=== PATIENT | male | born 1940 | race Caucasian/White ===

== ENCOUNTER → 2019-09-01 | Outpatient (CLI) | payer MEDICARE, BC ==
--- NOTE | 2019-09-03 08:45 | MR ---
EXAMINATION TYPE: MR cervical spine wo con DATE OF EXAM: 09/01/2019 COMPARISON: None HISTORY: Cervical radiculopathy, numbness in fingers TECHNIQUE: Multiplanar, multisequence images of the cervical spine were acquired. C2-C3: On degenerative disc disease with facet arthropathy. Very minimal central disc bulging but no focal herniation or canal stenosis. Neural foramina remain patent. C3-C4: Degenerative disc disease with bilateral uncovertebral joint hypertrophy and facet arthropathy . Circumferential disc bulging. Borderline to mild canal stenosis. Mild bilateral foraminal encroachm ent. C4-C5: Degenerative disc disease with uncovertebral joint hypertrophy and facet arthropathy. Mild rig ht foraminal encroachment. Borderline Canal stenosis. No focal herniation. C5-C6: Degenerative disc disease with uncovertebral joint hypertrophy. Moderate right and moderate to severe left foraminal encroachment. Disc bulging capped by spur results in mild central stenosis. No focal herniation. C6-C7: Degenerative disc disease with left paracentral disc protrusion capped by spur. No spinal cord contact. Mild bilateral foraminal encroachment with facet arthropathy and uncovertebral vertebral graham dy hemangioma C7. C7-T1: No evidence for degenerative disc disease. No disc bulge/herniation or protrusion. No Canal stenosis. Foramina are patent bilaterally. Cervical segments are intact. There is normal alignment. Cervical spinal cord is of normal signal. Craniovertebral junction relationships are within normal limits. Multilevel degenerative disc disea se most marked findings at C5-C6 6. IMPRESSION: 1. Multilevel moderate to severe degenerative disc disease with multilevel facet arthropathy resultin g in multilevel foraminal encroachment as discussed above. 2. Mild central stenosis C5-C6 due to disc bulging capped by spur and hypertrophic changes. 3. Focal moderate-sized left paracentral disc protrusion capped by spur C6-C7. No spinal cord contact . 4. Borderline to mild canal stenosis C3-C4 and C4-C5
== END | disposition home or self-care (01) ==
LOC: RADMRIMAIN 14:06
PROVIDERS: ATTEND Family Medicine
DX: M48.02 Spinal stenosis, cervical region (principal); M50.11 Cervical disc disorder with radiculopathy, high cervical region; M46.92 Unspecified inflammatory spondylopathy, cervical region
CPT/HCPCS: 72141

== ENCOUNTER → 2022-12-17 | Outpatient (CLI) | payer MEDICARE ==
[2022-12-17 18:46] LABS: HCT 45.3 % (39.6-50.0); HGB 15.1 g/dL (13.0-17.0); MCH 32.1 pg (27.0-32.0); MCHC 33.3 g/dL (32.0-37.0); MCV 96.2 fL (80.0-97.0); Mean Platelet Volume 10.5 fL (9.5-12.2); NRBC Per 100 WBC 0 /100 WBCS (0.0-0.0); Platelet Count 176 X 10*3/uL (140-440); RBC 4.71 X 10*6/uL (4.40-5.60); RDW 13.3 % (11.5-14.5); WBC 5.96 X 10*3/uL (4.50-10.00)
[2022-12-17 18:55] LABS: Anion Gap 10.3 mmol/L (10.00-18.00); Carbon Dioxide 27.7 mmol/L (20.0-27.5); Non-African American GFR(CKD) 70.8 (60.0-200.0); Potassium 3.4 mmol/L (3.5-5.5)
== END | disposition home or self-care (01) ==
LOC: LABPAT 11:11
PROVIDERS: ATTEND Internal Medicine Interventional Cardiology
DX: Z01.812 Encounter for preprocedural laboratory examination (principal); R07.9 Chest pain, unspecified
CPT/HCPCS: 80051; 82565; 85027

== ENCOUNTER 2022-12-20 07:55 | Day surgery (SDC) | payer MEDICARE ==
[~2022-12-20 07:55] MED LIST: ALPRAZolam 0.25 MG TAB PO PRN; ALPRAZolam 0.5 MG TAB PO PRN; ASPIRIN 325 MG TAB PO STA; ATORVASTATIN 80 MG TAB PO STA; HEPARIN SODIUM,PORCINE 10,000 UNIT in SODIUM CHLORIDE 0.9% 1,000 ML IRRIGATION PRN; HEPARIN SODIUM,PORCINE 2,500 UNIT in SODIUM CHLORIDE 0.9% 250 ML IRRIGATION PRN; NITROGLYCERIN SL TABS 0.4 MG TAB SUBLINGUAL PRN
[2022-12-20] MEDS: SODIUM CHLORIDE 0.9% 1,000 ML in EMPTY BAG 1 BAG IV SCH ×2 (08:31→21:01)
[2022-12-20] MEDS ORDERED: HEPARIN SODIUM 1,000 UN/ML (10ML VL) ONE (10:37)
[2022-12-20] MEDS ORDERED: fentaNYL (PF) 50 MCG/ML 2 ML AMP ONE (10:37)
[2022-12-20] MEDS ORDERED: fentaNYL (PF) 50 MCG/ML 2 ML AMP IV ONE (10:40)
[2022-12-20] MEDS ORDERED: LIDOCAINE 1% INJ 10MG/ML (5 ML VIAL-PF) SQ ONE (10:42)
[2022-12-20] MEDS ORDERED: VERAPAMIL SYRINGE (5 MG/10 ML) INTRAARTER ONE (10:43)
[2022-12-20] MEDS: HEPARIN SODIUM 1,000 UN/ML (10ML VL) IV ONE ×2 (10:48→10:59)
[2022-12-20] MEDS ORDERED: CLOPIDOGREL 75 MG TAB ONE (10:59)
[2022-12-20] MEDS: NITROGLYCERIN 1000MCG/10ML SYRINGE INTRACORON ONE ×2 (11:06→11:09)
[2022-12-20] MEDS ORDERED: CLOPIDOGREL 75 MG TAB PO ONE (11:08)
[2022-12-20] MEDS ORDERED: IOPAMIDOL-370 100ML BTL INJ ONE (11:08)
[2022-12-20] MEDS ORDERED: RX INFO: IV CONTRAST WAS GIVEN 1 EACH MISC MISCELLANE PRN (11:17)
[2022-12-20] MEDS ORDERED: NITROGLYCERIN SL TABS 0.4 MG TAB SUBLINGUAL PRN (11:17)
[2022-12-20] MEDS ORDERED: MAG HYDROX/AL HYDROX/SIMETH 30 ML CUP PO PRN (11:17)
[2022-12-20] MEDS ORDERED: ZOLPIDEM 5 MG TAB PO PRN (11:17)
[2022-12-20] MEDS ORDERED: ATROPINE SULFATE 0.1 MG/ML 10ML SYRINGE IV PRN (11:17)
[2022-12-20] MEDS ORDERED: IOPAMIDOL-370 50ML BTL INJ ONE (11:17)
--- NOTE | 2022-12-20 11:24 | P.PCN ---
Date of Procedure: 12/20/22 Operative Findings: CARDIAC CATHETERIZATION AND PERCUTANEOUS CORONARY INTERVENTION PERFORMING PHYSICIAN: Kael Gonzalez MD, VI PROCEDURE PERFORMED: 1. Selective right and left coronary angiogram 2. Left heart catheterization 3. Successful stenting of first obtuse marginal branch using 2.75 x 18 mm Xience PARVEEN which with an excellent angiographic results 4. Right radial artery angiogram INDICATION: This is an 10-year-old gentleman with hypertension and dyslipidemia who was seen in the office recently with a chest discomfort. He underwent myocardial perfusion imaging stress test and that showed ischemia. In light of that a heart catheterization was advised COMPLICATION: None APPROACH: Right radial artery LEVEL OF SEDATION: Moderate with the sedation time off 32 minutes PROCEDURE DESCRIPTION: After obtaining an informed consent the patient was brought to the cardiac energy systems laboratory director. The right radial artery was cannulated using micropuncture technique, the micropuncture wire passed easily then I placed a 6-[place] sheath. I gave the patient 2 mg of verapamil intra-arterial and 5000 units of heparin intravenous. Additional 3000 units given throughout the procedure. Selective right and left coronary angiogram performed using JR4 and JL 3.5 catheters. Left heart catheterization was performed using the JR4 catheter which across aortic valve that I did pulled back across the valve. After that I did intervene on the left circumflex SELECTIVE CORONARY ANGIOGRAM: The right coronary artery: Large caliber vessel and a dominant vessel. The RCA is angiographically normal. Bifurcates distally into PDA and PLV branches both appeared to be angiographically normal Left main: Is angiographically normal. Bifurcates into an ulcer next and LAD The left circumflex: Large caliber vessel nondominant vessel. The LCx proximally is angiographically normal and gives rises into an OM1 which appeared to be angiographically normal and OM 2 which has a tight lesion appeared to be very focal in the range of 80- 90%. The circumflex continue after that as a moderate caliber vessel in the AV groove The left anterior descending artery: Large caliber vessel. The LAD has mild disease only. Gives rises proximally into large diagonal branch which work as a ramus intermedius appears to have mild disease only. HEMODYNAMICS: The LVEDP was about 29 mmHg with no significant gradient across aortic valve PCI OF THE LCx: Anticoagulation was initiated using heparin with continuous ACT monitoring. I did engage the left main using a JL 3.5 guiding catheter. Subsequently I did wire the OM1 using a run-through wire. Predilatation was performed using 2.5 mm balloon before I deployed 2.75 x 18 mm stent where the stent was positioned under fluoroscopy guidance and deployed under its nominal pressure. The following angiogram showed good angiographic results and the procedure was completed was no complications CONCLUSION: Severe disease involving a large OM1. I did perform successful stenting of OM1 Elevated left sided filling pressure POSTPROCEDURE MANAGEMENT: #1 dual antiplatelet therapy aspirin and Plavix for at least 6 months #2 aggressive cholesterol control #3 follow-up with the patient
[2022-12-20] MEDS ORDERED: SODIUM CHLORIDE 0.9% 1,000 ML in EMPTY BAG 1 BAG IV SCH (11:30)
[2022-12-20] MEDS: GABAPENTIN 400 MG CAP PO SCH ×2 (17:59→21:00)
[2022-12-20] MEDS: POTASSIUM CHLORIDE ER 20 MEQ TAB.ER PO SCH (21:00)
[2022-12-20] MEDS ORDERED: ATORVASTATIN 80 MG TAB PO SCH (21:00)
[2022-12-21] MEDS: SODIUM CHLORIDE 0.9% 1,000 ML in EMPTY BAG 1 BAG IV SCH (04:43)
[2022-12-21 06:00] LABS: African American GFR (CKD) >90 (>60 ml/min/1.73 sqM); Non-African American GFR(CKD) 79 (>60 ml/min/1.73 sqM)
[2022-12-21 07:08] VITALS: BP 129/80; PULSE 55; RESP 16; TEMP 97.8
--- NOTE | 2022-12-21 08:36 | P.DS ---
Providers Attending physician: Kael Gonzalez Consults: 12/20/22 11:18 Consult Physician Routine Consulting Provider: [facility] Consult Reason/Comments: Post Interventional patient Do you want consulting provider notified?: Already Contacted Primary care physician: [facility] Hospital Course: The patient is a pleasant 82-year-old gentleman who underwent yesterday successful stenting of the left circumflex coronary artery with a good angiographic results and with no complication from right radial approach. The patient was seen this morning. He is asymptomatic. He is hemodynamically stable. The patient will be discharged on dual antiplatelet therapy as well as a statin but he stated that he was intolerant to statin in the past. The patient will be seen in the office in a week Plan - Discharge Summary Discharge Rx Participant: Yes New Discharge Prescriptions: New Aspirin 81 mg PO DAILY #90 tab Atorvastatin [Lipitor] 80 mg PO HS #90 tab Clopidogrel [Plavix] 75 mg PO DAILY #90 tablet No Action Gabapentin [Neurontin] 400 mg PO TID Vit C/E/Zn/Coppr/Lutein/Zeaxan [Preservision Areds 2 Softgel] 1 each PO DAILY Triamterene/Hydrochlorothiazid [Triamterene-Hctz 37.5-25 mg Tb] 1 each PO DAILY Potassium Chloride [K-Tab ER] 20 meq PO BID Aspirin 180 mg PO DAILY Doxycycline Monohydrate 100 mg PO DAILY Discharge Medication List Aspirin 180 mg PO DAILY 12/16/22 [History] Doxycycline Monohydrate 100 mg PO DAILY 12/16/22 [History] Gabapentin [Neurontin] 400 mg PO TID 12/16/22 [History] Potassium Chloride [K-Tab ER] 20 meq PO BID 12/16/22 [History] Triamterene/Hydrochlorothiazid [Triamterene-Hctz 37.5-25 mg Tb] 1 each PO DAILY 12/16/22 [History] Vit C/E/Zn/Coppr/Lutein/Zeaxan [Preservision Areds 2 Softgel] 1 each PO DAILY 12/16/22 [History] Clopidogrel [Plavix] 75 mg PO DAILY #90 tablet 12/20/22 [Rx] Aspirin 81 mg PO DAILY #90 tab 12/21/22 [Rx] Atorvastatin [Lipitor] 80 mg PO HS #90 tab 12/21/22 [Rx] Follow up Appointment(s)/Referral(s): Kael Gonzalez MD [STAFF PHYSICIAN] - 12/28/22 2:00 pm (APPOINTMENT MADE @ [facility] LOCATION ) Patient Instructions/Handouts: *[facility] - After Heart Catheterization - [facility] Instructions, Clopidogrel (By mouth), Moderate Sedation (ED), Coronary Intravascular Stent Placement (DC), After Radial Heart Catheterization (GEN)
[2022-12-21] MEDS ORDERED: TRIAMTERENE-HCTZ 37.5-25MG 1 EACH TAB PO SCH (09:00)
[2022-12-21] MEDS ORDERED: ASPIRIN 81 MG PO SCH (09:00)
[2022-12-21] MEDS ORDERED: ASPIRIN 325 MG TAB PO SCH (09:00)
[2022-12-21] MEDS ORDERED: VIT A,C & E-LUTEIN-MINERALS 1 EACH TAB PO SCH (09:00)
[2022-12-21] MEDS ORDERED: CLOPIDOGREL 75 MG TAB PO SCH (09:00)
[2022-12-21] MEDS: POTASSIUM CHLORIDE ER 20 MEQ TAB.ER PO SCH (10:11)
[2022-12-21] MEDS: GABAPENTIN 400 MG CAP PO SCH (10:11)
[2022-12-21 11:17] VITALS: BMI 30.2
== END 2022-12-21 11:38 | disposition home or self-care (01) ==
LOC: CATHCVL 07:55 → 6NMEDSUR 11:13 → CATHCVL 12-21 11:38
PROVIDERS: ATTEND Internal Medicine Interventional Cardiology
DX: I25.10 Atherosclerotic heart disease of native coronary artery without angina pectoris (principal); I34.0 Nonrheumatic mitral (valve) insufficiency; I45.10 Unspecified right bundle-branch block; I10 Essential (primary) hypertension; E78.5 Hyperlipidemia, unspecified; I25.9 Chronic ischemic heart disease, unspecified; I49.3 Ventricular premature depolarization; Z79.02 Long term (current) use of antithrombotics/antiplatelets; Z79.82 Long term (current) use of aspirin; Z79.899 Other long term (current) drug therapy; Z79.83 Long term (current) use of bisphosphonates; Z91.048 Other nonmedicinal substance allergy status
CPT/HCPCS: 93458; 82565; 84132; 92928; C1769 ×3; C9600; C1887; C1894; C1725; C1874; J2001; J3010; J1644; Q9967 ×2

== ENCOUNTER → 2023-02-04 | Outpatient (CLI) | payer MEDICARE ==
--- NOTE | 2023-02-04 14:58 | XR ---
EXAMINATION TYPE: XR lumbosacral spine min 4V DATE OF EXAM: 02/04/2023 2:50 PM INDICATION: Patient age:Male; 82 years old; Reason for study: M54.50 back pain; [facility]. COMPARISON: None TECHNIQUE: Frontal, lateral , bilateral oblique and coned in L5-S1 lateral views of the spine. FINDINGS: There are 5 lumbar type vertebral bodies identified. No evidence of any acute osseous patho logy. No evidence of loss of vertebral body height is seen. There is normal alignment of the lumbar vertebral bodies. Mild multilevel disc space narrowing with endplate sclerosis and anterior osteophyt osis. Multilevel facet arthropathy This is most pronounced at L5-S1 with suggested bilateral mild radha ral foraminal stenosis. Vascular sclerosis. IMPRESSION: 1. No acute process. 2. Mild multilevel degenerative disc disease and osteoarthritic changes.
== END | disposition home or self-care (01) ==
LOC: RADXRMAIN 14:26
PROVIDERS: ATTEND Family Medicine
DX: M51.36 Other intervertebral disc degeneration, lumbar region (principal); M47.816 Spondylosis without myelopathy or radiculopathy, lumbar region
CPT/HCPCS: 72110

== ENCOUNTER → 2024-01-10 | Outpatient (CLI) | payer MEDICARE ==
--- NOTE | 2024-01-10 15:59 | XR ---
EXAMINATION TYPE: XR lumbosacral spine 5 views, XR Hip Bilateral 2 views Complete DATE OF EXAM: 01/10/2024 Comparison: Lumbar spine 02/04/2023 Clinical History: 83-year-old male M25.551 PAIN IN R HIP M54.50 LOW BACK [id number] Findings: Lumbar spine: 5 lumbar type vertebral bodies. Unchanged eggshell calcification right midabdomen. Facet arthropathy mid to lower lumbar spine. No pars interarticularis defect is seen. Moderate diffuse disc disease L5- S1 and [id number] elsewhere throughout the lumbar spine. Vertebral body heights are preserved. Trace grade 1 retrolisthesis L2/L3 and L3-L4. Bilateral hips: There is mild degenerative change of both hips with prominent marginal spurring. There may be mild ax ial joint space narrowing. No acute fracture, subluxation, dislocation seen. Impression: 1. Lumbar spine: Moderate degenerative disc disease L5-S1 with hypertrophic facet arthropathy mid to lower lumbar spine. Mild to moderate degenerative disc disease elsewhere in the lumbar spine. Degener ative grade 1 retrolisthesis L2-L3 and L3-L4. No vertebral compression collapse. 2. Bilateral hips: Mild bilateral hip OA. No acute osseous abnormality seen.
== END | disposition home or self-care (01) ==
LOC: RADXRMAIN 09:41
PROVIDERS: ATTEND Family Medicine
DX: M51.37 Other intervertebral disc degeneration, lumbosacral region (principal); M43.17 Spondylolisthesis, lumbosacral region; M16.0 Bilateral primary osteoarthritis of hip; M25.551 Pain in right hip; M25.552 Pain in left hip; M54.50 Low back pain, unspecified
CPT/HCPCS: 72110; 73521; 85379